=== PATIENT | female | born 1975 | race Hispanic/Latino ===

== ENCOUNTER 2023-03-22 04:38 | Inpatient (IN) | payer SELFPAY ==
[2023-03-22 05:25] LABS: #Eosinphils 0.2 thou/uL (0.0-0.7); #Monocytes 0.9 thou/uL (0.11-0.59); #Neutrophils 7.5 thou/uL (1.40-6.50); %Basophils 0.2 % (0.0-1.0); %Eosinophils 1.8 % (0.0-10.0); %Lymphocytes 14.3 % (21.0-51.0); %Monocytes 9.2 % (0.0-10.0); Hematocrit 41.1 % (36.0-47.0); Mean Corpuscular HGB CONC 34.1 g/dL (32.0-36.0); Mean Corpuscular Hemoglobin 30.6 pg (27.0-31.0); Mean Corpuscular Volume 89.9 fl (78.0-98.0); Mean Platelet Volume 11.8 fL (7.4-10.4); Platelet Count 229 10x3/uL (130-400); RBC Distribution Width 12.7 % (11.5-14.5); Red Blood Cell (RBC) Count 4.57 mill/uL (4.20-5.40); White Blood Cell (WBC) Count 10.1 10x3/uL (4.8-10.8)
[2023-03-22 05:36] LABS: BHCG - Serum Negative (NEGATIVE); Pregs Control Background? CLEAR/WHITE (CLR/WHITE); Pregs Control Bar Appear? YES (CONTROL BAR)
[2023-03-22 05:49] LABS: ALT (SGPT) 40 U/L (8-55); AST (SGOT) 25 U/L (5-34); Albumin 4.4 g/dL (3.5-5.0); Alkaline Phosphatase 60 U/L (40-110); Anion Gap 13 mmol/L (10-20); BUN (Urea Nitrogen) 12 mg/dL (7.0-18.7); Bilirubin, Total 0.5 mg/dL (0.2-1.2); Calc. Creatinine Clearance 0 mL/min (70-130); Calcium 9.2 mg/dL (7.8-10.44); Carbon Dioxide 22 mmol/L (22-29); Chloride 108 mmol/L (98-107); Estimated GFR 86; Globulin 3.1 g/dL (2.4-3.5); Glucose 104 mg/dL (70-105); Lipase 25 U/L (8-78); Potassium 3.8 mmol/L (3.5-5.1); Protein, Total 7.5 g/dL (6.0-8.3); Sodium 139 mmol/L (136-145)
[2023-03-22] MEDS ORDERED: Dicyclomine 20 MG/2 ML VIAL ONE (05:56)
[2023-03-22] MEDS ORDERED: Ondansetron PF 4 MG/2 ML Vial ONE ×2 (05:56→13:45)
[2023-03-22] MEDS ORDERED: Piperacillin/Tazobactam 4.5 GM VIAL ONE (06:38)
[2023-03-22] MEDS ORDERED: Sodium Chloride 0.9% 100 ML ONE ×2 (06:39→13:49)
[2023-03-22] MEDS ORDERED: Ipratropium/Albuterol 3 ML NEB NEB PRN (07:25)
[2023-03-22] MEDS ORDERED: Ondansetron PF 4 MG/2 ML Vial IVP PRN (07:25)
[2023-03-22] MEDS ORDERED: traMADol HCl 50 MG TAB PO PRN (07:26)
[2023-03-22] MEDS ORDERED: Acetaminophen 325 MG TAB PO SCH (07:30)
[2023-03-22 07:47] VITALS: BMI 39.6
[2023-03-22] MEDS: Acetaminophen 500 MG TAB PO SCH ×2 (07:50→11:54)
[2023-03-22] MEDS: Sodium Chloride 0.9% 1,000 ML IV SCH (08:21)
[2023-03-22] MEDS: Famotidine/PF 20 mg/2ml Vial SLOW IVP SCH (08:22)
[2023-03-22] MEDS: Morphine 2 MG/ML VIAL SLOW IVP PRN (08:22)
[2023-03-22] MEDS: traMADol HCl 50 MG TAB PO SCH (11:55)
[2023-03-22] MEDS ORDERED: FLU VACC QS2023-24(6MOS UP)/PF 60 MCG/0.5 ML SYRINGE IM ONE (12:00)
[2023-03-22] MEDS ORDERED: EPINEPHrine 1 MG/ML VIAL ONE (13:35)
[2023-03-22] MEDS ORDERED: Bupivacaine 0.25% HCL 30 ML VIAL ONE (13:35)
[2023-03-22] MEDS ORDERED: Ondansetron HCl/PF 4 MG/2 ML Vial IVP PRN (13:37)
[2023-03-22] MEDS ORDERED: Promethazine HCl 25 MG/ML VIAL IM PRN (13:37)
[2023-03-22] MEDS ORDERED: fentaNYL PF 100 MCG/2 ML SYRINGE ONE (13:42)
[2023-03-22] MEDS ORDERED: PROPOFOL 20 ML ONE ×2 (13:43→14:44)
[2023-03-22] MEDS ORDERED: Dexmedetomidine 200 MCG/2 ML VIAL ONE ×2 (13:44→13:45)
[2023-03-22] MEDS ORDERED: Rocuronium Bromide 10 MG/ML (10ML VIAL) ONE (13:45)
[2023-03-22] MEDS ORDERED: Dexamethasone 4 mg/ml Vial ONE (13:45)
[2023-03-22] MEDS ORDERED: CEFAZOLIN 1 GM VIAL ONE (14:05)
[2023-03-22] MEDS ORDERED: NEOSTIGMINE 3 MG/3 ML SYR 3 MG/3 ML SYRINGE ONE (14:41)
[2023-03-22] MEDS ORDERED: Glycopyrrolate 0.2 MG/ML 5 ML SYRINGE ONE (14:41)
[2023-03-22] MEDS: Piperacillin/Tazobactam 3.375 GM in Sodium Chloride 0.9% 100 ML IVPB SCH (16:00)
[2023-03-22] MEDS ORDERED: Piperacillin/Tazobactam 3.375 GM in Sodium Chloride 0.9% 100 ML IVPB SCH (18:00)
[2023-03-23 05:46] LABS: #Monocytes 0.9 thou/uL (0.11-0.59); #Neutrophils 9.8 thou/uL (1.40-6.50); %Basophils 0.2 % (0.0-1.0); %Lymphocytes 9.7 % (21.0-51.0); %Monocytes 7.2 % (0.0-10.0); %Neutrophils 81.6 % (42.0-75.0); Hematocrit 34.3 % (36.0-47.0); Hemoglobin 11.6 g/dL (12.0-16.0); Mean Corpuscular HGB CONC 33.8 g/dL (32.0-36.0); Mean Corpuscular Hemoglobin 30.9 pg (27.0-31.0); Mean Corpuscular Volume 91.5 fl (78.0-98.0); Mean Platelet Volume 12.4 fL (7.4-10.4); Platelet Count 172 10x3/uL (130-400); RBC Distribution Width 12.7 % (11.5-14.5); Red Blood Cell (RBC) Count 3.75 mill/uL (4.20-5.40); White Blood Cell (WBC) Count 12.1 10x3/uL (4.8-10.8)
[2023-03-23 06:14] LABS: Anion Gap 10 mmol/L (10-20); BUN (Urea Nitrogen) 11 mg/dL (7.0-18.7); Calc. Creatinine Clearance 156 mL/min (70-130); Calcium 8.5 mg/dL (7.8-10.44); Carbon Dioxide 23 mmol/L (22-29); Chloride 108 mmol/L (98-107); Estimated GFR 104; Glucose 111 mg/dL (70-105); Potassium 3.5 mmol/L (3.5-5.1); Sodium 137 mmol/L (136-145)
[2023-03-23 11:51] VITALS: BP 103/63; TEMP 97.3
== END 2023-03-23 14:50 | disposition home or self-care (01) | DRG 419 ==
LOC: ERS 04:38 → MSONC 06:49
PROVIDERS: ADMIT Surgery; ATTEND Family Medicine
PROC: 0FT44ZZ Resection of Gallbladder, Percutaneous Endoscopic Approach (ICD-10-PCS; principal; 2023-03-22)
DX: K80.00 Calculus of gallbladder with acute cholecystitis without obstruction (principal); E66.9 Obesity, unspecified; Z79.899 Other long term (current) drug therapy; Z98.890 Other specified postprocedural states; Z68.39 Body mass index [BMI] 39.0-39.9, adult
CPT/HCPCS: 36415; 76705; 80048; 80053; 83690; 84703; 85025; 88304; 96372; 96374; 96375; C1713; J0171; J0665; J0690; J1100; J2272; J2405; J2543; J2704; J3490; J7050; S0028